=== PATIENT | female | born 1995 | race Two or more races ===

== ENCOUNTER 2022-11-30 15:01 | Observation (INO) | payer MEDICAID ==
[~2022-11-30] VITALS: Ht 152 cm; Wt 54.0 kg
[2022-11-30] MEDS ORDERED: LACTATED RINGER'S 2,000 ML IV ONE (15:30)
[2022-11-30] MEDS ORDERED: PREN-96 PO (15:54)
[2022-11-30 16:08] LABS: Fern Testing Negative
[2022-11-30] MEDS: TERBUTALINE SULFATE 1 MG/ML 1ML VIAL SC SCH ×2 (16:17→17:09)
[2022-11-30] MEDS ORDERED: NIF10C PO (17:51)
[2022-11-30] MEDS ORDERED: NITR-87 PO (17:51)
== END 2022-11-30 21:52 | disposition home or self-care (01) ==
LOC: LDRP 15:01
PROVIDERS: ADMIT Obstetrics & Gynecology; ATTEND Obstetrics & Gynecology
DX: O60.02 Preterm labor without delivery, second trimester (principal); O42.912 Preterm premature rupture of membranes, unspecified as to length of time between rupture and onset of labor, second trimester; O26.892 Other specified pregnancy related conditions, second trimester; R10.2 Pelvic and perineal pain; O62.9 Abnormality of forces of labor, unspecified; Z3A.25 25 weeks gestation of pregnancy
CPT/HCPCS: 59025; 76805; 81002; 84112; 94760; 96360; 96361; 96372; G0378; J3105; Q0114